=== PATIENT | female | born 1985 | race Hispanic/Latino ===

== ENCOUNTER 2019-01-04 08:50 | Outpatient (CLI) | payer MEDICAID ==
--- NOTE | 2019-01-04 09:13 | ULT ---
EXAM: Transabdominal pelvic ultrasound PROVIDED CLINICAL HISTORY: Lost IUD string COMPARISON: None FINDINGS: Uterus measures about 8.3 x 4.2 x 6.3 cm and demonstrates a normal transabdominal sonographic appeara nce. Linear echogenic structure within the endometrial canal compatible with IUD, appearing appropria tely positioned. The right and left ovaries demonstrate a normal transabdominal sonographic appearanc e. There is no evidence for free pelvic fluid. IMPRESSION: Normal sonographic appearance of IUD.
== END 2019-01-04 08:51 | disposition home or self-care (01) ==
LOC: SCSULT 08:50
PROVIDERS: ATTEND Nurse Practitioner Women's Health
DX: T83.32XA Displacement of intrauterine contraceptive device, initial encounter (principal)
CPT/HCPCS: 76856

== ENCOUNTER 2020-07-17 21:51 | Emergency (ER) | payer MEDICAID | END 2020-07-18 00:40 | disposition short-term general hospital (02) | LOC: ERS 21:51 | DX: T14.8XXA Other injury of unspecified body region, initial encounter (principal); G43.909 Migraine, unspecified, not intractable, without status migrainosus; Y04.2XXA Assault by strike against or bumped into by another person, initial encounter | CPT/HCPCS: 99281 ==